=== PATIENT | female | born 1995 | race Caucasian/White ===

== ENCOUNTER 2025-05-03 07:55 | Emergency (ER) | payer OTHER ==
[2025-05-03] MEDS ORDERED: Sulfameth/Trimethoprim DS 800-160mg TAB ONE (09:10)
[2025-05-03] MEDS ORDERED: Ciprofloxacin 500 MG TAB ONE (09:10)
[2025-05-03 09:24] LABS: ALT (SGPT) 13 U/L (Less than 34); AST (SGOT) 24 U/L (11-34); Albumin 4.3 g/dL (3.1-4.5); Alkaline Phosphatase 41 U/L (40-110); Anion Gap 13 mmol/L (10-20); BUN (Urea Nitrogen) 11 mg/dL (7.0-18.7); Bilirubin, Total 0.6 mg/dL (0.3-1.2); Calc. Creatinine Clearance 0 mL/min (70-130); Calcium 9.1 mg/dL (7.8-10.44); Carbon Dioxide 24 mmol/L (22-29); Chloride 105 mmol/L (98-107); Globulin 2.8 g/dL (2.4-3.5); Glucose 103 mg/dL (70-105); Lipase 29 U/L (8-78); Potassium 4.0 mmol/L (3.5-5.1); Sodium 138 mmol/L (136-145)
[2025-05-03 09:31] LABS: Glucose, Urine (Dipstick) Negative (Negative); Leukocyte Trace (Negative); Protein, Urine (Dipstick) Negative (Neg-Trace); Specific Gravity, Urine 1.015 (1.005-1.030)
[2025-05-03 09:38] LABS: Pregnancy Test - Urine (BHCG) Negative (Negative); Pregu Control Background? CLEAR/WHITE (CLR/WHITE); Pregu Control Bar Appear? YES (CONTROL BAR)
[2025-05-03 09:54] LABS: Hematocrit 41.2 % (36.0-47.0); Hemoglobin 15.3 g/dL (12.0-16.0); MDiff Complete? YES; Mean Corpuscular Hemoglobin 32.0 pg (27.0-31.0); Mean Corpuscular Volume 86.1 fl (78.0-98.0); Platelet Adequacy Comment Appears Adequate; Platelet Count 202 10x3/uL (130-400); Red Blood Cell (RBC) Count 4.79 mill/uL (4.20-5.40); White Blood Cell (WBC) Count 4.7 10x3/uL (4.8-10.8)
[2025-05-03 09:54] LABS: CAUTI Indications for Culture Dysuria,urgency,freq; RBC/HPF None Seen HPF (0-3); WBC/HPF 0-3 HPF (0-3)
[2025-05-03 09:55] LABS: Bacteria/HPF 1+ HPF (None Seen)
[2025-05-03 09:56] LABS: Urine Culture Reflex No No
== END 2025-05-03 21:35 | disposition short-term general hospital (02) ==
LOC: BURERS 07:55
DX: G93.9 Disorder of brain, unspecified (principal); R51.9 Headache, unspecified; G89.29 Other chronic pain; L02.416 Cutaneous abscess of left lower limb; N39.0 Urinary tract infection, site not specified; F17.210 Nicotine dependence, cigarettes, uncomplicated
CPT/HCPCS: 36415; 70450; 75809; 80053; 81001; 81025; 83605; 83690; 85025